=== PATIENT | female | born 1960 | race Caucasian/White ===

== ENCOUNTER → 2017-09-20 | Outpatient (CLI) | payer OTHER ==
[~2017-09-20] MED LIST: ACET650T67 PO; ASPI-183 PO; CYCL-36 PO; CYCL10TA PO; DIPH50LI PO; DOXE25CA2 PO; ENOX80P SQ; LEVO.05 PO; LEVO25TA4 PO; PANT40TA3 PO; QUEN12.5 PO; RANI150 PO; RANI150C PO; WARF5 PO
[2017-09-20 09:24] LABS: BILIRUBIN, URINE NEG (NEG); BLOOD, URINE NEG (NEG); GLUCOSE,URINE NEG (NEG); KETONE, URINE NEG (NEG); NITRITE,URINE NEG (NEG); SQUAMOUS EPITHELIAL CELL URINE <1 /hpf (0-5); URINE COLOR LIGHT-YELLOW (YELLW/STRAW); URINE LEUKOCYTE ESTERASE NEG (NEG)
[2017-09-20 09:24] LABS: HEMOGLOBIN 12.3 GM/DL (11.6-15.3); MEAN CELL VOLUME 92.9 FL (80.0-100.0); MEAN CORPUSCULAR HEMOGLOBIN 30.2 PG (27.0-34.0); MEAN CORPUSCULAR HGB CONC 32.5 % (32.0-36.0); MEAN PLATELET VOLUME 7.6 FL (7.0-11.0); PLATELET COUNT 375 TH/MM3 (150-450); RED BLOOD COUNT 4.09 MIL/MM3 (4.00-5.30); RED CELL DISTRIBUTION WIDTH 13.7 % (11.6-17.2); WHITE BLOOD COUNT 6.8 TH/MM3 (4.0-11.0)
[2017-09-20 09:34] LABS: INTERNATIONAL NORMALIZED RATIO 0.9 RATIO; PROTHROMBIN TIME - PATIENT 9.6 SEC (9.8-11.6)
[2017-09-20 09:51] LABS: ALBUMIN 3.6 GM/DL (3.4-5.0); AST (GOT) 22 U/L (15-37); BICARBONATE 29.2 MEQ/L (21.0-32.0); BLOOD UREA NITROGEN 15 MG/DL (7-18); CHLORIDE 105 MEQ/L (98-107); CREATININE 1.01 MG/DL (0.50-1.00); GLOMERULAR FILTRATION RATE 57 ML/MIN (>89); GLUCOSE,FASTING 94 MG/DL (74-99); SODIUM (NA) 142 MEQ/L (136-145)
[2017-09-20 09:52] LABS: ALT (GPT) 35 U/L (10-53)
[2017-09-20 09:55] LABS: ALKALINE PHOSPHATASE 80 U/L (45-117); TOTAL BILIRUBIN ADULT 0.2 MG/DL (0.2-1.0); TOTAL PROTEIN 7.6 GM/DL (6.4-8.2)
--- NOTE | 2017-09-20 22:51 | EKG ---
Date Performed: 09/20/2017 Time Performed: 08:37:58 PTAGE: 57 years EKG: Sinus rhythm NORMAL ECG PREVIOUS TRACING : 08/29/2015 14.30 DOCTOR: Sukhdev Couch Interpretating Date/Time 09/20/2017 22:47:26
== END ==
LOC: CPRE 08:15
PROVIDERS: ATTEND Surgery
DX: Z01.810 Encounter for preprocedural cardiovascular examination (principal); Z01.812 Encounter for preprocedural laboratory examination; M79.604 Pain in right leg
CPT/HCPCS: 36415; 80053; 81001; 85027; 85610; 85730; 93005

== ENCOUNTER 2017-09-27 05:35 | Day surgery (SDC) | payer OTHER ==
--- NOTE | 2017-09-22 09:38 | MH ---
cc: Spike MILLARD DATE OF ADMISSION 09/27/2017 ADMITTING DIAGNOSIS Osteoarthritic degeneration left hip now being admitted for left total hip arthroplasty. ADMISSION HISTORY AND PHYSICAL This pleasant 57-year-old female is being admitted today for a left total hip arthroplasty due to severe painful osteoarthritic degeneration left hip. OTHER PAST HISTORY She has a history of: 1. Thyroid problems 2. Stomach issues 3. Sciatica MEDICATIONS Currently takes: 1. Levothyroxine 2. Pantoprazole 3. Citalopram 4. Cyclobenzaprine PAST SURGERIES 1. Hysterectomy 2. Arthroscopic surgery left knee. 3. Laparoscopy 4. Lithotripsy 5. Tonsillectomy REVIEW OF SYSTEMS Noncontributory FAMILY HISTORY Noncontributory SOCIAL HISTORY She does not smoke or drink. ALLERGIES SHE IS ALLERGIC TO CEPHALOSPORINS AND BIAXIN. PHYSICAL EXAM We find 57-year female well-developed, well-nourished oriented x3 complaining of pain in her left hip. VITAL SIGNS: Blood pressure 148/86, pulse 93 and regular, respirations 18, temperature 97.9, pulse oximetry 98% on room air. HEENT: Eyes PERRL, EOMI. Ears, nose, mouth clear. NECK: Supple. LUNGS: Clear. HEART: Regular rate. ABDOMEN: Soft. Bowel sounds, nontender. EXTREMITIES: The left hip has a decreased range of motion. She is neurovascularly intact to her toes. IMPRESSION AT THIS TIME Osteoarthritic degeneration left hip. PLAN Admission for a left total hip arthroplasty today. The patient given a prescription for postoperative pain, and anticoagulation control in the office. Plans on going to a rehab center after surgical stay in the hospital. MD LESLIE Emerson/NEMOL /9:24 AM /9:28 AM
[~2017-09-27] VITALS: Ht 167.6 cm; Wt 96.2 kg
[~2017-09-27 05:35] MED LIST changes: -CYCL-36 PO; -ENOX80P SQ; -LEVO.05 PO; -QUEN12.5 PO; -RANI150 PO; -RANI150C PO; -WARF5 PO
[2017-09-27] MEDS ORDERED: SODIUM CHLORIDE 0.9% INJ 100 ML ONE (06:39)
[2017-09-27] MEDS ORDERED: VANCOMYCIN 1 GM/200 ML INJ 200 ML IV ONE (06:39)
[2017-09-27] MEDS ORDERED: CLINDAMYCIN PHOS 900 MG/6 ML VIAL ONE (06:39)
[2017-09-27 06:49] VITALS: BP 119/74; PULSE 94; RESP 20; TEMP 98.7; O2SAT 95
[2017-09-27] MEDS ORDERED: GENTAMICIN SULFATE 80 MG/2 ML VIAL ONE (06:52)
[2017-09-27] MEDS ORDERED: ACETAMINOPHEN 1000 MG/100 ML 0 ML IV ONE (07:14)
[2017-09-27] MEDS ORDERED: APREPITANT 40 MG CAP ONE (07:23)
[2017-09-27] MEDS ORDERED: POVIDONE IODINE 5% (ANTISEPSIS KIT) 4 APPLICATIONS EACH NARE PRN (07:30)
[2017-09-27] MEDS ORDERED: CLINDAMYCIN 900 MG/NS 100 ML IV SCH ×2 (07:30)
[2017-09-27] MEDS ORDERED: CHLORHEXIDINE GLUCONATE 2 % 1 PACK (2 CLOTHS) TOPICAL PRN (07:30)
[2017-09-27] MEDS ORDERED: METOPROLOL TARTRATE 25 MG TAB PO PRN (07:30)
[2017-09-27] MEDS ORDERED: LACTATED RINGER'S 1000 ML IV PRN (07:30)
[2017-09-27] MEDS ORDERED: SODIUM CHLORID 0.9% 500 ML IV PRN (07:30)
[2017-09-27] MEDS ORDERED: CHLORHEXIDINE GLUCONATE 4% SOLN 120 ML BTL TOPICAL SCH (07:30)
[2017-09-27] MEDS ORDERED: VANCOMYCIN 1000 MG/NS 250 ML (for <70 kg) IV SCH ×2 (07:30)
[2017-09-27] MEDS ORDERED: SODIUM CHLORIDE 0.9% IV SCH ×2 (08:00→11:00)
[2017-09-27] MEDS ORDERED: EXPAREL PERI-ARTICULAR INJECTION (TOTAL VOL. 120 ML) P-ARTICULR SCH ×2 (08:00)
[2017-09-27] MEDS ORDERED: TRANEXAMIC ACID IV SCH ×2 (08:00→11:00)
== END 2017-09-27 08:00 | disposition home or self-care (01) ==
LOC: HSDI 05:35 → HSDC 05:35 → HSDI 05:35 → UNDOADMIN 05:35 → EDSTATUS 08:00 → HSDC 08:00
PROVIDERS: ATTEND Surgery
DX: M16.12 Unilateral primary osteoarthritis, left hip (principal); L98.8 Other specified disorders of the skin and subcutaneous tissue; Z53.09 Procedure and treatment not carried out because of other contraindication; Z01.812 Encounter for preprocedural laboratory examination
CPT/HCPCS: 86850; 86900; 86901; C9290; G0463; J3370; J8501; 99211; J0131; J1580

== ENCOUNTER 2017-10-25 08:30 | Inpatient (IN) | payer OTHER ==
--- NOTE | 2017-10-22 09:25 | MH ---
cc: Spike Mack MD DATE OF ADMISSION: 10/25/2017 ADMITTING DIAGNOSIS: Osteoarthritic degeneration, left hip now being admitted for left total arthroplasty. HISTORY OF PRESENT ILLNESS: This pleasant 57-year-old female is being admitted today for a left total hip arthroplasty due to severe painful osteoarthritic degeneration. PAST MEDICAL HISTORY: She has history of thyroid problems and GERD. She also has anxiety disorder and back pain. MEDICATIONS: 1. Levothyroxine. 2. Pantoprazole. 3. Citalopram. 4. Cyclobenzaprine. PAST SURGICAL HISTORY: Hysterectomy, arthroscopic surgery, laparoscopy, lithotripsy and tonsillectomy. REVIEW OF SYSTEMS: Noncontributory. FAMILY HISTORY: Noncontributory. SOCIAL HISTORY: She does not smoke or drink. ALLERGIES: CEPHALOSPORINS AND BIAXIN. PHYSICAL EXAMINATION: GENERAL: I find a 57-year-old female, well developed, well nourished, alert and oriented x3, complaining of pain in her left hip. VITAL SIGNS: Blood pressure 120/78, pulse 100 and regular, respirations 18, temperature 98.2, pulse oximetry 98% on room air. HEENT: PERRLA, EOMI. Ears clear. Mouth clear. NECK: Supple. LUNGS: Clear. CARDIOVASCULAR: Regular rate. ABDOMEN: Soft, positive bowel sounds, nontender. EXTREMITIES: Exam reveals the left hip to have decreased range of motion. Neurovascularly intact to her toes. SKIN: No rash identified. IMPRESSION: At this time, is severe painful osteoarthritic degeneration of left hip. PLAN: Admission for left total hip arthroplasty today. The patient understands the procedure well and risks involved and understands using a good scrub and Bactroban preoperatively and plans on going home after surgical stay in the hospital. Spike Mack MD JRKaila/KT/ , 04:08 PM , 04:26 PM
[~2017-10-25] VITALS: Ht 167.6 cm; Wt 96.9 kg
[2017-10-25] MEDS ORDERED: CHLORHEXIDINE GLUCONATE 4% SOLN 120 ML BTL TOPICAL SCH (09:30)
[2017-10-25] MEDS ORDERED: CLINDAMYCIN 900 MG/NS 100 ML IV SCH ×2 (09:30)
[2017-10-25] MEDS ORDERED: TRANEXAMIC ACID IV SCH ×4 (09:30)
[2017-10-25] MEDS ORDERED: SODIUM CHLORIDE 0.9% IV SCH ×4 (09:30)
[2017-10-25] MEDS ORDERED: SODIUM CHLORIDE 0.9% INJ 100 ML ONE (09:38)
[2017-10-25] MEDS ORDERED: INSULIN HUMAN REGULAR 1,000 UNITS/10 ML VIAL SQ PRN (09:45)
[2017-10-25] MEDS ORDERED: METOPROLOL TARTRATE 25 MG TAB PO PRN (09:45)
[2017-10-25] MEDS ORDERED: POVIDONE IODINE 5% (ANTISEPSIS KIT) 4 APPLICATIONS EACH NARE PRN (09:45)
[2017-10-25] MEDS ORDERED: VANCOMYCIN 1 GM/200 ML PREMIX IV SCH (09:45)
[2017-10-25] MEDS ORDERED: LACTATED RINGER'S 1000 ML IV PRN (09:45)
[2017-10-25] MEDS ORDERED: SODIUM CHLORID 0.9% 500 ML IV PRN (09:45)
[2017-10-25] MEDS ORDERED: CHLORHEXIDINE GLUCONATE 2 % 1 PACK (2 CLOTHS) TOPICAL PRN (09:45)
[2017-10-25 09:50] LABS: AUTOMATED NEUTROPHIL # 3.7 TH/MM3 (1.8-7.7); BASOPHIL % 0.4 % (0.0-2.0); EOSINOPHIL # 0.2 TH/MM3 (0-0.4); HEMATOCRIT 35.7 % (35.0-46.0); HEMOGLOBIN 11.8 GM/DL (11.6-15.3); LYMPH % 37.3 % (9.0-44.0); LYMPHOCYTE # 2.7 TH/MM3 (1.0-4.8); MEAN CELL VOLUME 92.3 FL (80.0-100.0); MEAN CORPUSCULAR HEMOGLOBIN 30.5 PG (27.0-34.0); MEAN PLATELET VOLUME 7.5 FL (7.0-11.0); MONO % 7.8 % (0.0-8.0); MONOCYTE # 0.6 TH/MM3 (0-0.9); NEUT % 51.5 % (16.0-70.0); PLATELET COUNT 358 TH/MM3 (150-450); RED BLOOD COUNT 3.87 MIL/MM3 (4.00-5.30); RED CELL DISTRIBUTION WIDTH 13.6 % (11.6-17.2); WHITE BLOOD COUNT 7.1 TH/MM3 (4.0-11.0)
[2017-10-25] MEDS ORDERED: GENTAMICIN SULFATE 80 MG/2 ML VIAL ONE (09:57)
[2017-10-25] MEDS ORDERED: APREPITANT 40 MG CAP ONE (10:39)
[2017-10-25] MEDS ORDERED: ACETAMINOPHEN 325 MG TAB PO PRN (10:45)
[2017-10-25] MEDS ORDERED: DIPHENHYDRAMINE 50 MG PO PRN (10:45)
[2017-10-25] MEDS ORDERED: MAGNESIUM HYDROXIDE SUSP 30 ML CUP PO PRN (10:45)
[2017-10-25] MEDS ORDERED: NALOXONE HCL 0.4 MG/ML AMP IV PUSH PRN (10:45)
[2017-10-25] MEDS ORDERED: BISACODYL 10 MG SUPP RECTAL PRN (10:45)
[2017-10-25] MEDS ORDERED: MORPHINE SULFATE 8 MG/ML INJ IV PUSH PRN (10:45)
[2017-10-25] MEDS ORDERED: ONDANSETRON HCL 4 MG/2 ML VIAL IVP PRN (10:45)
[2017-10-25] MEDS ORDERED: MISCELLANEOUS NURSING INFORMATION XX PRN (10:45)
[2017-10-25] MEDS ORDERED: TRANEXAMIC ACID INJ 0 MG in SODIUM CHLORIDE 0.9% INJ 100 ML IV SCH (10:45)
[2017-10-25] MEDS ORDERED: DOXEPIN HCL 25 MG CAP PO PRN (10:45)
[2017-10-25] MEDS ORDERED: Post-op Orders (for Pharmacy) XX ONE (10:45)
--- NOTE | 2017-10-25 10:48 | HHI.FF ---
Face to Face Verification Diagnosis: (1) Status post total hip replacement, left Physical Therapy Gait training Hip: Total hip, Protocol: Left, Posterior hip precautions, Abduction pillow while in bed, Progress to weight bearing Canvas Knee Splint: When in bed & 2 pillows btw thighs Nursing RN: 3 days/week x 2 weeks Dressing Changes: Do not change dressing I have seen patient Gabrielle Jack on 10/25/17. My clinical findings support the need for the requested home health care services because: Limited ability to care for self High risk of falls I certify that my clinical findings support that this patient is homebound because: Unsteady gait/balance Spike Mack MD Oct 25, 2017 10:48
[2017-10-25] MEDS ORDERED: COMMODE 3-IN-11 MIS (10:51)
[2017-10-25] MEDS ORDERED: WALKER WHEELS/F1 MIS (10:51)
[2017-10-25] MEDS ORDERED: BUPIVACAINE LIPOSO PF 1.3% INJ 20 ML, BUPIVACAINE PF 0.25% INJ 20 ML in SODIUM CHLORIDE... P-ARTICULR SCH (11:30)
[2017-10-25] MEDS ORDERED: PHENYLEPH/NS 1000 MCG/10 ML SYR IV ONE (12:00)
[2017-10-25] MEDS ORDERED: DEXAMETHASONE SOD PHOS 4 MG/ML VIAL IV ONE (12:00)
[2017-10-25] MEDS ORDERED: LIDOCAINE HCL 1% PF 5 ML SYRINGE OTHER ONE (12:00)
[2017-10-25] MEDS ORDERED: ROCURONIUM INJ 50 MG/5 ML SYRINGE IV PUSH ONE (12:00)
[2017-10-25] MEDS ORDERED: GLYCOPYRROLATE 1 MG/5 ML SYRINGE IV PUSH ONE (12:00)
[2017-10-25] MEDS ORDERED: NEOSTIGMINE 5 MG/5 ML SYRINGE IV PUSH ONE (12:00)
[2017-10-25] MEDS ORDERED: ONDANSETRON HCL 4 MG/2 ML VIAL IV ONE (12:00)
[2017-10-25] MEDS ORDERED: PROPOFOL 200 MG/20 ML AMP IV ONE (12:00)
--- NOTE | 2017-10-25 14:43 | MP ---
cc: Spike Mack MD DATE OF OPERATION: PREOPERATIVE DIAGNOSIS: Osteoarthritic degeneration, left hip. POSTOPERATIVE DIAGNOSIS: Osteoarthritic degeneration, left hip. SURGERY PERFORMED: Left total hip arthroplasty using Aesculap components size 12 lateralized stem with a short neck, a size 36 head, a size 52 cup and one 32 mm screw. SURGEON: Cricket Mack MD PLATING STRIPPER: ADRIA Blevins. ANESTHESIA: General intubation. PROCEDURE: The patient was brought to the Operating Room, where after successful induction of spinal anesthesia was placed on the operating room table in the left lateral decubitus position. The left hip, thigh and leg were prepped and draped in the usual manner. A posterolateral approach was then utilized by making an incision over the proximal portion of the femur lateral aspect, carried across the greater trochanter, carried posterior in a curved incision toward the buttock. The incision was carried down through the subcutaneous tissue, through the fibers of the tensor fascia duarte and gluteus jesus to expose the greater trochanteric bursa. This was then removed by sharp and blunt dissection. The hip was then internally rotated to expose the insertions of the short external rotators of the hip and were incised at their insertion into the greater trochanter and reflected posterior to protect the sciatic nerve. These were held with a Charnley retractor to better visualize the hip joint. The capsule was identified and removed by sharp dissection. The hip was then dislocated by internal rotation and flexion of the hip. The femoral calcar was then measured using the trial components for the appropriate length cut of the neck using an oscillating saw. After the cut was made the head was removed. The acetabulum was then approached and measured, the acetabulum reamed with the acetabular reamers. Next, the femoral calcar was approached by first inserting a canal finder followed by rigid reamers, followed by a cookie-cutter to the appropriate size, in this case being a #15. The broach was left in place and a planer used to plane the calcar to a smooth finish. The broach was then removed. The trial components were then inserted into place, the hip reduced, found to track smoothly with no evidence of subluxation or dislocation. All trial components were removed. The wound was irrigated copiously with antibiotic solution and Water Pik. The actual components were then inserted and impacted into place using the aforementioned components. The hip was reduced, found to track smoothly with no evidence of subluxation or dislocation. The wound was irrigated copiously with antibiotic solution, meticulous hemostasis achieved. No drain utilized. 80 mL Exparel with a mixture of Exparel, 0.25% Marcaine plain and normal saline used in the anterior hip joint for extra pain control. The capsule approximated with interrupted #1 Vicryl, deep fascia approximated with running #2 Quill. The subcutaneous tissue approximated using interrupted and running 2-0 and 4-0 Monocryl suture in layers. Skin was approximated with Primapore dressing. A knee immobilizer and abduction pillow brace applied. The sciatic nerve identified and protected throughout the procedure. Estimated blood loss was 400 mL. Sponge and suture counts were correct. The patient tolerated the procedure well and left the Operating Room in satisfactory condition. ADRIA Blevins was present during the entire procedure to include patient positioning and the procedure. The medical necessity of the nurse practitioner, nurses assistant was indicated in this case due to the surgical complexity of the case itself. During the surgical case the medical chief technician was working the back table while my assistant professor of theater ADRIA was directly assisting me. JMD LESLIE Vasquez/ERNST , 02:16 PM , 02:42 PM
[2017-10-25] MEDS ORDERED: HYDROmorphone HCL PF 2 MG/ML VIAL ONE (14:49)
--- NOTE | 2017-10-25 14:51 | HHI.PR ---
Immediate Post Op Note Procedure Date: Oct 25, 2017 Pre Op Diagnosis: severe painful osteoarthritic degeneration left hip Post Op Diagnosis: osteoarthritic degeneration. of left hip Surgeon: Spike Mack MD Custody Assistant(s): Hermelinda COVINGTON Procedure: Left Total hip Arthroplasty Complications: none Specimen(s) removed: none Estimated blood loss: 450 Anesthesia: General Drains: None IVF Urinary Output (mLs): 0 (No munoz) Patient to: PACU Patient Condition: Good Implant/Devices: SEE IMPLANT LOG (if applicable) Date/Time of Procedure: SEE SURGICAL CARE RECORD Hermelinda Lopes Oct 25, 2017 14:51
[2017-10-25] MEDS ORDERED: MIDAZOLAM HCL 2 MG/2 ML VIAL ONE (14:59)
[2017-10-25] MEDS ORDERED: MORPHINE SULFATE 4 MG/ML INJ ONE (15:00)
[2017-10-25] MEDS: LACTATED RINGER'S 1000 ML INJ 1,000 ML IV SCH ×2 (15:06→21:05)
--- NOTE | 2017-10-25 15:37 | RADRPT ---
EXAM DATE/TIME: 10/25/2017 14:49 [facility] COMPARISON: No previous studies available for comparison. INDICATIONS : Post operative left hip. MEDICAL HISTORY : None. SURGICAL HISTORY : Tonsillectomy. ENCOUNTER: Initial ACUITY: 1 day PAIN SCORE: Non-responsive. LOCATION: Left hip. FINDINGS: A single AP view of the left hip was obtained and demonstrates the patient is status post arthroplast y. The femoral and acetabular components are intact and in normal alignment. There is adjacent soft t issue swelling and gas. There is mild osteopenia. CONCLUSION: Expected postoperative changes status post arthroplasty. Macario Wong MD on October 25, 2017 at 15:34 Board Certified Radiologist. This report was verified electronically.
[2017-10-25] MEDS ORDERED: *ONDANSETRON 4 MG VIAL PERIprocedural Use ONLY ONE (17:02)
[2017-10-25] MEDS ORDERED: *PROMETHAZINE 25 MG/ML VIAL PERIprocedural use ONLY ONE (17:45)
[2017-10-25] MEDS: CLINDAMYCIN 900 MG/NS PREMIX 50 ML IV SCH (18:00)
[2017-10-25] MEDS ORDERED: *morphine SULFATE 4 MG/ML PERIprocedure ONLY ONE (20:16)
[2017-10-25] MEDS ORDERED: TEMAZEPAM 15 MG CAP PO PRN (21:00)
[2017-10-25] MEDS: CYCLOBENZAPRINE HCL 10 MG TAB PO PRN (21:31)
[2017-10-25 22:08] VITALS: BP 145/77; PULSE 98; RESP 17; TEMP 99.3; O2SAT 100
[2017-10-25 23:15] VITALS: BP 131/67; PULSE 103; RESP 18; TEMP 99.2; O2SAT 99
[2017-10-25] MEDS: ACETAMINOPHEN/HYDROcodone 325 MG/7.5 MG TAB PO PRN ×2 (23:34→23:49)
[2017-10-26] MEDS: CLINDAMYCIN 900 MG/NS PREMIX 50 ML IV SCH ×2 (02:15→09:54)
[2017-10-26] MEDS: LEVOTHYROXINE SODIUM 25 MCG TAB PO SCH (04:09)
[2017-10-26] MEDS: ACETAMINOPHEN/HYDROcodone 325 MG/7.5 MG TAB PO PRN ×5 (04:09→21:17)
[2017-10-26 04:43] VITALS: BP 118/65; PULSE 101; RESP 17; TEMP 98; O2SAT 98
[2017-10-26 08:00] VITALS: BP 109/57; PULSE 109; RESP 18; TEMP 97.8; O2SAT 96
[2017-10-26] MEDS: PANTOPRAZOLE SOD 40 MG DELAYED RELEASE TAB PO SCH (08:41)
[2017-10-26] MEDS: APIXABAN 2.5 MG TABLET PO SCH ×2 (08:43→20:11)
--- NOTE | 2017-10-26 11:29 | PD.ORT.PN ---
Subjective Subjective Remarks Patient complaining of minimal discomfort in her hip. Objective Vitals Vital Signs Date Time Temp Pulse Resp B/P (MAP) Pulse Ox O2 Delivery O2 Flow Rate FiO2 10/26/17 08:00 97.8 109 18 109/57 (74) 96 10/26/17 07:21 Room Air 10/26/17 04:43 98.0 101 17 118/65 (82) 98 10/25/17 23:15 99.2 103 18 131/67 (88) 99 10/25/17 22:08 99.3 98 17 145/77 (99) 100 10/25/17 20:00 91 12 139/77 (97) 100 Nasal Cannula 3 10/25/17 18:00 89 14 152/72 (98) 95 Nasal Cannula 3 10/25/17 17:00 97.4 94 16 141/65 (90) 100 Nasal Cannula 3 10/25/17 16:00 83 17 145/68 (93) 97 Nasal Cannula 3 10/25/17 15:45 83 14 146/69 (94) 99 Nasal Cannula 3 10/25/17 15:30 81 12 146/71 (96) 98 Nasal Cannula 4 10/25/17 15:15 86 13 147/71 (96) 96 Nasal Cannula 4 10/25/17 15:00 90 22 134/85 (101) 99 Nasal Cannula 4 10/25/17 14:46 97.6 95 12 122/78 (93) 100 Nasal Cannula 4 I/O 10/25/17 10/25/17 10/25/17 10/26/17 10/26/17 10/26/17 07:00 15:00 23:00 07:00 15:00 23:00 Intake Total 1200 ml 1000 ml 770 ml Output Total 400 ml 1 ml 1 ml Balance 800 ml 999 ml 769 ml Intake Oral 720 ml IV Total 1200 ml 1000 ml 50 ml Output Urine Total 1 ml 1 ml Estimated Blood Loss 400 ml # Bowel Movements 0 Result Diagram: 10/26/17 0354 Imaging Last 48 hours Impressions Hip X-Ray 10/25/17 1043 Signed Impressions: Service Date/Time: Wednesday, October 25, 2017 14:49 - CONCLUSION: Expected postoperative changes status post arthroplasty. Macario Wong MD Objective Remarks Patient sitting up in chair today. She is neurovascularly intact to her toes. Negative Homans sign. Assessment & Plan Ortho Post Op Day #: 1 Problem List: Assessment and Plan Continue PT out of bed by mouth pain meds [facility]. Spike Mack MD Oct 26, 2017 11:29
[2017-10-26] MEDS ORDERED: HYDR-3580 PO (11:31)
--- NOTE | 2017-10-26 11:32 | HHI.DS ---
Discharge Summary Admission Date Oct 25, 2017 at 08:30 Discharge Date: Oct 26, 2017 Admitting Diagnosis Osteoarthritic degeneration left hip. Diagnosis: (1) Status post total hip replacement, left Diagnosis: Principal ICD Codes: Z96.642 - Presence of left artificial hip joint Brief History This is a 57 year old female patient CBC/BMP: 10/26/17 0354 Significant Findings Laboratory Tests Test 10/25/17 09:30 10/26/17 03:54 Red Blood Count 3.87 MIL/MM3 (4.00-5.30) Hemoglobin 11.0 GM/DL (11.6-15.3) Hematocrit 33.0 % (35.0-46.0) PE at Discharge Patient sitting up in chair today. She is neurovascularly intact to her toes. Negative Homans sign. Hospital Course Patient underwent a total hip arthroplasty of her left hip on day of admission. She received a course of prophylactic IV antibiotics and within 23 hours started on anticoagulation therapy. She continued to improve remaining afebrile stable vital signs and tolerating by mouth pain meds well. She was discharged to [facility] on postoperative day 1 in good condition with instructions for continuation of care and follow-up in the office. Pt Condition on Discharge: Good Discharge Disposition: Discharge to SNF Discharge Instructions Diet Instructions: As Tolerated, No Restrictions Activities You Can Perform: Full Weight Bearing, Shower Only-No Bath Activities to Avoid: Bathing, Driving Spike Mack MD Oct 26, 2017 11:32
[2017-10-26 12:00] VITALS: BP 122/55; PULSE 101; RESP 18; TEMP 98.3; O2SAT 95
[2017-10-26] MEDS: LACTATED RINGER'S 1000 ML INJ 1,000 ML IV SCH (13:30)
[2017-10-26 16:00] VITALS: BP 117/58; PULSE 105; RESP 18; TEMP 99.1; O2SAT 95
[2017-10-26] MEDS: MULTIVITAMINS/MINERALS THERAPEUTIC TAB PO SCH (20:11)
[2017-10-26] MEDS: DOCUSATE SODIUM 100 MG CAP PO SCH (20:11)
[2017-10-26 20:50] VITALS: BP 97/54; PULSE 110; RESP 18; TEMP 98.7; O2SAT 97
[2017-10-26 23:00] VITALS: BP 132/61; PULSE 117; RESP 18; TEMP 97.5; O2SAT 96
[2017-10-26] MEDS: CYCLOBENZAPRINE HCL 10 MG TAB PO PRN (23:20)
[2017-10-27] MEDS: LACTATED RINGER'S 1000 ML INJ 1,000 ML IV SCH (02:00)
[2017-10-27 03:50] VITALS: BP 132/56; PULSE 123; RESP 18; TEMP 97.9; O2SAT 98
[2017-10-27] MEDS: ACETAMINOPHEN/HYDROcodone 325 MG/7.5 MG TAB PO PRN ×3 (03:52→12:22)
[2017-10-27] MEDS: LEVOTHYROXINE SODIUM 25 MCG TAB PO SCH (05:09)
[2017-10-27 06:22] LABS: HEMATOCRIT 29.9 % (35.0-46.0); HEMOGLOBIN 9.8 GM/DL (11.6-15.3)
[2017-10-27 08:00] VITALS: BP 114/58; PULSE 103; RESP 17; TEMP 98.9; O2SAT 93
[2017-10-27] MEDS: MULTIVITAMINS/MINERALS THERAPEUTIC TAB PO SCH (08:53)
[2017-10-27] MEDS: PANTOPRAZOLE SOD 40 MG DELAYED RELEASE TAB PO SCH (08:53)
[2017-10-27] MEDS: APIXABAN 2.5 MG TABLET PO SCH (08:53)
[2017-10-27] MEDS: DOCUSATE SODIUM 100 MG CAP PO SCH (08:53)
[2017-10-27 09:53] VITALS: RESP 18
--- NOTE | 2017-10-27 11:04 | PD.ORT.PN ---
Subjective Subjective Remarks Patient complaining of minimal discomfort in her hip. Objective Vitals Vital Signs Date Time Temp Pulse Resp B/P (MAP) Pulse Ox O2 Delivery O2 Flow Rate FiO2 10/27/17 09:53 18 10/27/17 08:00 98.9 103 17 114/58 (76) 93 10/27/17 03:50 97.9 123 18 132/56 (81) 98 10/26/17 23:00 97.5 117 18 132/61 (84) 96 10/26/17 20:50 98.7 110 18 97/54 (68) 97 10/26/17 20:15 Room Air 10/26/17 16:00 99.1 105 18 117/58 (77) 95 10/26/17 12:00 98.3 101 18 122/55 (77) 95 I/O 10/26/17 10/26/17 10/26/17 10/27/17 10/27/17 10/27/17 07:00 15:00 23:00 07:00 15:00 23:00 Intake Total 770 ml 720 ml 360 ml Output Total 1 ml Balance 769 ml 720 ml 360 ml Intake Oral 720 ml 720 ml 360 ml IV Total 50 ml Output Urine Total 1 ml # Voids 2 2 # Bowel Movements 0 0 0 Result Diagram: 10/27/17 0410 Imaging Last 48 hours Impressions Hip X-Ray 10/25/17 1043 Signed Impressions: Service Date/Time: Wednesday, October 25, 2017 14:49 - CONCLUSION: Expected postoperative changes status post arthroplasty. Macario Wong MD Objective Remarks Patient sitting up in chair today. She is neurovascularly intact to her toes. Negative Homans sign. Assessment & Plan Ortho Post Op Day #: 2 Problem List: (1) Status post total hip replacement, left ICD Codes: Z96.642 - Presence of left artificial hip joint Assessment and Plan Continue PT out of bed by mouth pain meds and discharged to [facility] facility when bed available. Spike Mack MD Oct 27, 2017 11:04
== END 2017-10-27 12:24 | DRG 470 ==
LOC: HSDI 08:30 → N06A 20:49
PROVIDERS: ADMIT Surgery; ATTEND Surgery
PROC: 0SRB0JA Replacement of Left Hip Joint with Synthetic Substitute, Uncemented, Open Approach (ICD-10-PCS; principal; 2017-10-25 11:21)
DX: M16.12 Unilateral primary osteoarthritis, left hip (principal); F41.9 Anxiety disorder, unspecified; K21.9 Gastro-esophageal reflux disease without esophagitis; M54.9 Dorsalgia, unspecified; Z90.710 Acquired absence of both cervix and uterus
CPT/HCPCS: 73501; 85014; 85018; 85025; 86850; 86900; 86901; 94150; C1776; C9290; J1100; J1170; J1580; J2250; J2270; J2370; J2405; J2550; J2710; J3010; J3370; J7120; J8501; L1830

== ENCOUNTER 2018-03-07 05:42 | Observation (INO) ==
--- NOTE | 2018-03-01 13:59 | MH ---
cc: Spike Mack MD DATE OF ADMISSION: 03/07/2018 DATE OF ADMISSION: 03/07/2018 ADMITTING DIAGNOSIS: Osteoarthritic degeneration, right knee. REASON FOR ADMISSION: Now being admitted for right total knee arthroplasty. HISTORY OF PRESENT ILLNESS: This pleasant 57-year-old female is being admitted today for right total knee arthroplasty due to severe painful osteoarthritic degeneration, right knee. OTHER PAST HISTORY: Patient has a history of anxiety, hypothyroidism, chronic low back pain for which she sees Pain Management with sciatica. She also has recently been diagnosed with an elevated uric acid and C-reactive protein of over 20 for which she was put on gabapentin and will be seeing her primary care for possibility of gout and she is slightly anemic. CURRENT MEDICATIONS: 1. Gabapentin. 2. Levothyroxine. 3. Pantoprazole. 4. Citalopram. 5. Cyclobenzaprine. PAST SURGICAL HISTORY: Include partial hysterectomy, arthroscopic surgery on the left knee, laparoscopy, lithotripsy and tonsillectomy. REVIEW OF SYSTEMS: Noncontributory. FAMILY HISTORY: Noncontributory. SOCIAL HISTORY: She does not smoke or drink. ALLERGIES: ALLERGIC TO CEPHALOSPORINS. PHYSICAL EXAMINATION: GENERAL: We find a 57-year-old female, well-developed, well-nourished, oriented x 3, complaining of pain in her knees, right worse than the left. VITAL SIGNS: Blood pressure is 138/88, pulse 97, respirations 18, temperature 98.3, pulse oximetry 97% on room air. HEENT: Eyes: PERRL. EOMI. Ears, nose and mouth clear. NECK: Supple. LUNGS: Clear. HEART: Regular rate. ABDOMEN: Soft. Positive bowel sounds, nontender. EXTREMITIES: Reveal the right knee to have crepitance on range of motion, lacking 5 degrees short of full extension. She is neurovascularly intact to her toes. IMPRESSION: Severe painful osteoarthritic degeneration, right knee. PLAN: Admission for right total knee arthroplasty today as long as she does get clearance from her primary care physician. She was given a prescription for postoperative pain and anticoagulation control in the office. JMoise Mack MD JRR/SB , 01:45 PM , 01:54 PM
[2018-03-07] MEDS ORDERED: Bupivacaine/Epi PF 0.25% Inj 20 ML, Bupivacaine Liposo PF 1.3% Inj 20 ML, Sodium Chlor ... P-ARTICULR SCH ×2 (06:15)
[2018-03-07] MEDS ORDERED: Chlorhexidine 4% Topical 120 APPLIC/120 ML Bottle TOPICAL SCH (06:15)
[2018-03-07] MEDS ORDERED: Chlorhexidine Gluconate 2% 1 Pack (2 Cloths) TOPICAL SCH (06:30)
[2018-03-07] MEDS ORDERED: Metoprolol Tartrate 25 MG Tablet PO SCH (06:30)
[2018-03-07] MEDS ORDERED: Dexamethasone Inj 20 MG/5 ML Vial ONE (06:52)
[2018-03-07] MEDS ORDERED: Vancomycin Inj 1 GM/200 ML PIGGYBACK IV.SIG SCH (07:00)
[2018-03-07] MEDS ORDERED: Propofol Inj 500 MG/50 ML Vial ONE (07:00)
[2018-03-07] MEDS ORDERED: Sodium Chlor 0.9% Inj 500 ML IV.SIG SCH (07:00)
[2018-03-07] MEDS ORDERED: EPINEPHrine PF/SF Inj 1 MG/ML Ampul I-OCULAR ONE (07:01)
[2018-03-07] MEDS ORDERED: Bupivacaine/Dextrose 0.75% Inj 2 ML Ampul ONE (07:01)
[2018-03-07] MEDS ORDERED: SODIUM CHLOR 0.9% IV.SIG SCH (07:30)
[2018-03-07] MEDS ORDERED: TRANEXAMIC ACID IV.SIG SCH (07:30)
[2018-03-07] MEDS ORDERED: Bupivacaine Liposomal PF 1.3% Inj 20 ML Vial ONE (07:45)
[2018-03-07] MEDS ORDERED: Bisacodyl 10 MG Supp RECTAL PRN (08:14)
--- NOTE | 2018-03-07 08:22 | P.DCO ---
- Physical Therapy Order: Evaluate and treat, Strength and gait training - Certification I have seen patient Gabrielle Jack on 03/07/18. My clinical findings support the need for the requested home health care services because: Limited ability to care for self, High risk of falls I certify that my clinical findings support that this patient is homebound because: Post-op weakness
[2018-03-07] MEDS ORDERED: Post-op Orders (for Pharmacy) OTHER STA (11:00)
--- NOTE | 2018-03-07 11:24 | MP ---
cc: Spike Mack MD DATE OF OPERATION: PREOPERATIVE DIAGNOSIS: Osteoarthritic degeneration, right knee. POSTOPERATIVE DIAGNOSIS: Osteoarthritic degeneration, right knee. PROCEDURE PERFORMED: Right total knee arthroplasty using Consensus components, size 4 femur, 2 tibia, 10 insert and 2 patella with 3 batches of antibiotic-impregnated cement. SURGEON: Spike Mack MD WOOD HEEL FLAP INSERTER: ADRIA Blevins ANESTHESIA: Spinal. PROCEDURE: After successful induction of anesthesia, the patient is placed on the operating room table in the supine position. The knee is prepped and draped in the usual manner. A tourniquet is inflated at the upper thigh and set to 300 mmHg pressure after exsanguination of the lower extremity. A longitudinal incision is made extending from 3 inches proximal to the superior pole of the patella, across the patella in longitudinal fashion, and down past the insertion of the tibial tubercle into the proximal tibia. The incision is carried down through subcutaneous tissue along the medial aspect of the patella and retinaculum, down through the capsule to expose the knee joint. The patella and patellar tendon are freed up enough to allow the patella to be inverted and retracted off the lateral side of the knee joint. The knee joint is left exposed. Small osteophytes are removed. All soft tissue is removed to allow proper position of the femoral and tibial cutting jig guide. The first femoral jig is then inserted along the distal end of the femur after first measuring to decide whether this is a small, medium, or large component. The notch is then drilled and the tibial cutting guide inserted into the femoral cutting guide, along with the ankle brace to allow for proper measurement of the tibial cutting surface that needed to be resected. Pins are inserted into the tibial cutting jig and femoral cutting jig to hold them in place. An oscillating saw is then used to resect the surface of the tibia. The surface of the tibia is then completely removed using sharp and blunt dissection. The anterior and posterior cuts of the femur are then made as well using an oscillating saw through the cutting guide. All guides are then removed and the varus/valgus angulation cutting guide applied to the femur for proper measurement of the proper amount of valgus. The anterior cutting guide for the femur is then inserted at the anterior femoral cuts made. Next, the first block trial is inserted into the femur to allow for proper condyle drill holes to be made which are then made followed by removal of the bone between the condyles using an oscillating saw as well as the bone removed at the most posterior surface of the condyle. After this, this guide is removed and the chamfer cuts made using the chamfer cutting guide from both anterior and posterior. Next, the femoral trial is then inserted, the tibial surface reflected anterior to expose the tibial surface and a tibial stem guide is inserted after first measuring for a standard, standard plus, large, or large plus surface to be used. After the stem is impacted the trial tibial surface is applied followed by the trial meniscal components. After full range of motion is found with the appropriate length meniscal components varying the patella is prepared by resecting the posterior aspect of the patella using an oscillating saw, inserting a trial. The trial is then removed and the cruciate cutting guide applied using the bur to cut the cruciate cuts. After cruciate cuts are made all trials are removed. The wound is irrigated copiously with antibiotic solution and Water Pik and the actual components inserted into place using the aforementioned components. After the cement has hardened and the components are found to have full range of motion with no instability, the tourniquet is deflated, total tourniquet time being 57 minutes at 300 mmHg pressure. 60 mL of mixture Exparel, normal saline and 0.25% Marcaine plain was inserted around the knee joint for extra pain control. The wound again is irrigated copiously with antibiotic solution, meticulous hemostasis achieved. The deep fascia was approximated first with running #2 Quill and interrupted #1 Vicryl and 2-0 and 4-0 Monocryl. Prineo dressing was applied. No drain was utilized. The patient tolerated the procedure well and left the Operating Room in satisfactory condition. ADRIA Blevins was present during the entire procedure to include patient positioning and the procedure. The medical necessity of nurse practitioner first mate was indicated in this case due to the surgical complexity of the case itself. During the surgical case, the technology administrator was working the back table and my real estate assistant ADRIA was directly assisting me. ESTIMATED BLOOD LOSS: 100 mL. COUNTS: Sponge and suture counts were correct. COMPONENTS: The components used were the aforementioned components. J. MD LESLIE Sanchez/TL , 11:05 AM , 11:11 AM
--- NOTE | 2018-03-07 11:25 | P.BOP ---
- Preoperative Diagnosis (1) Osteoarthritis of right knee - Postoperative Diagnosis (1) Status post total right knee replacement using cement (2) Osteoarthritis of right knee Date of procedure: 03/07/18 Procedure: Right Total Knee Arthroplasty Anesthesia: spinal Surgeon: Spike Mack MD Application Support Intern: Hermelinda Lopes Estimated blood loss (mL): 100 Tourniquet time (min): 57 Urine output (mL): 0 (no munoz) Pathology: none sent Condition: stable Disposition: PACU
[2018-03-07] MEDS ORDERED: Tranexamic Acid Inj 1,000 MG in Sodium Chlor 0.9% Inj 100 ML IV.SIG ONE (11:30)
--- NOTE | 2018-03-07 11:54 | XR ---
EXAM DATE: 03/07/2018 11:52 AM EDT AGE/SEX: 57 years / Female INDICATIONS: Post op right knee. CLINICAL DATA: This is the patient's initial encounter. Patient reports that signs and symptoms have been present for 1 day and indicates a pain score of Nonresponsive. MEDICAL/SURGICAL HISTORY: None. None. COMPARISON: No prior exams available for comparison. FINDINGS: Right knee arthroplasty. Postsurgical changes. No hardware loosening or fracture. CONCLUSION: Right knee arthroplasty Electronically signed by: Kannan Pinon MD 03/07/2018 11:52 AM EDT
[2018-03-07] MEDS ORDERED: Lidocaine PF 1% Inj 5 ML Syringe INFILTRATN ONE (12:00)
[2018-03-07] MEDS ORDERED: Phenylephrine/NS 1000 MCG/10ML Syringe IV.PUSH ONE (12:00)
[2018-03-07] MEDS ORDERED: *morphine SULFATE 10 MG/ML PERIprocedure ONLY ONE ×2 (12:07→12:24)
[2018-03-07] MEDS ORDERED: Sodium Chlor 0.9% Inj 80 ML, Bupivacaine Liposo PF 1.3% Inj 20 ML, Bupivacaine PF 0.25%... P-ARTICULR SCH ×3 (12:30)
[2018-03-07] MEDS: Clindamycin 900 mg/NS Premix 900 MG/50 ML PIGGYBACK IV.SIG SCH ×2 (12:41→20:00)
[2018-03-07] MEDS: Morphine Inj 4 MG/ML Vial IV.PUSH PRN ×2 (18:08→23:43)
[2018-03-07] MEDS: Multivitamin/Minerals Therapeutic Tablet PO SCH ×2 (19:55→20:00)
[2018-03-07] MEDS: Senna/Docusate Sodium 8.6/50 MG Tablet PO SCH ×2 (19:55→20:00)
[2018-03-08] MEDS: Clindamycin 900 mg/NS Premix 900 MG/50 ML PIGGYBACK IV.SIG SCH (05:56)
[2018-03-08 06:44] LABS: Hematocrit 30.6 % (35.0-46.0); Hemoglobin 9.8 gm/dL (11.6-15.3)
[2018-03-08] MEDS: Multivitamin/Minerals Therapeutic Tablet PO SCH ×2 (09:14→21:13)
[2018-03-08] MEDS: Senna/Docusate Sodium 8.6/50 MG Tablet PO SCH ×2 (09:14→21:13)
--- NOTE | 2018-03-08 11:33 | P.PNOP ---
Subjective Interval history: Patient is comfortable without complaints. Physical Exam Vital signs: Vital Signs 03/07/18 11:45 03/07/18 12:00 03/07/18 12:15 Temperature 97.8 F Pulse Rate 81 84 84 Respiratory Rate 17 20 20 Blood Pressure 102/52 L 153/72 H 162/83 H Pulse Oximetry 100 99 98 03/07/18 12:30 03/07/18 16:00 03/07/18 19:15 Temperature 97.3 F L 97.8 F Pulse Rate 84 87 97 H Respiratory Rate 13 18 18 Blood Pressure 153/74 H 163/84 H 146/65 H Pulse Oximetry 99 100 96 03/07/18 23:46 03/08/18 00:00 03/08/18 04:00 Temperature 97.9 F 97.1 F L Pulse Rate 100 H 94 H Respiratory Rate 18 15 18 Blood Pressure 163/82 H 106/58 L Pulse Oximetry 98 97 03/08/18 08:00 Temperature 97.7 F Pulse Rate 94 H Respiratory Rate 16 Blood Pressure 111/57 L Pulse Oximetry 100 Intake & Output 03/07/18 03/08/18 03/08/18 18:59 06:59 18:59 Intake Total 3159.69 / 3159.69 530 / 530 Output Total 100 / 100 Balance 3059.69 / 3059.69 530 / 530 Weight 96.9 kg 96.9 kg Intake: IV 1359.69 / 1359.69 50 / 50 Cleocin 900 mg/NS Premix 900 mg 50 / 50 50 / 50 In 50 ml @ 100 mls/hr IV.SIG Q8H [facility] Rx#:[id number] LR 1000 mL Inj 1,000 ML @ 30 1000 / 1000 mls/hr IV.SIG .Q24H [facility] Rx#: [id number] Cyklokapron Inj 969 MG In NS 109.69 / 109.69 Inj 100 ML @ 200 mls/hr IV.SIG ONCE [facility] Rx#:[id number] Vancomycin Inj 1 gm In 200 ml @ 200 / 200 200 mls/hr IV.SIG [employer] [facility] Rx#:[id number] Oral 480 / 480 Anesthesia Amount 1800 / 1800 Output: Estimated Blood Loss 100 / 100 Other: # Voids 2 # Incontinent Voids 3 Date of Last Bowel Movement 03/06/18 # Bowel Movements 0 Results - Labs CBC & Chem 7: 03/08/18 05:12 Laboratory Results - last 24 hr 03/08/18 05:12 Hgb 9.8 L Hct 30.6 L - Imaging Impressions Knee X-Ray 03/07/18 08:15 CONCLUSION: Right knee arthroplasty Assessment and Plan - Attending Attestation Attending Attestation: Wound is clean and dry. She is neurovascularly intact to her toes. She is sitting in a chair. Plan is for the patient to continue with physical therapy and be transferred to the care home facility as soon as a bed is available. This is for continuation of care. Follow-up in the office in 1 week time for recheck. Patient does have a prescription for postoperative pain control. She will be managed on a blood thinner for 14 days.
[2018-03-08] MEDS: Morphine Inj 4 MG/ML Vial IV.PUSH PRN ×2 (15:17→21:13)
[2018-03-09 05:27] LABS: Hematocrit 29.2 % (35.0-46.0); Hemoglobin 9.4 gm/dL (11.6-15.3)
[2018-03-09] MEDS: Senna/Docusate Sodium 8.6/50 MG Tablet PO SCH ×2 (08:14→21:15)
[2018-03-09] MEDS: Multivitamin/Minerals Therapeutic Tablet PO SCH ×2 (08:15→21:16)
--- NOTE | 2018-03-09 08:21 | P.PNOP ---
Subjective Interval history: Pt comfortable today without complaints. Ready for discharge to SNF. Physical Exam Vital signs: Vital Signs 03/08/18 12:00 03/08/18 16:00 03/08/18 20:27 Temperature 97.8 F 97.7 F 98.9 F Pulse Rate 92 H 89 109 H Respiratory Rate 18 18 18 Blood Pressure 142/110 H 159/75 H 191/82 H Pulse Oximetry 99 98 93 L 03/09/18 00:00 03/09/18 01:30 Temperature 97.7 F Pulse Rate 98 H Respiratory Rate 18 16 Blood Pressure 165/77 H Pulse Oximetry 97 Intake & Output 03/08/18 03/09/18 03/09/18 18:59 06:59 18:59 Intake Total 480 / 480 Balance 480 / 480 Weight 100.7 kg Intake: Oral 480 / 480 Other: # Voids 2 Date of Last Bowel Movement 03/06/18 03/06/18 # Bowel Movements 0 Results - Labs CBC & Chem 7: 03/09/18 04:00 Laboratory Results - last 24 hr 03/09/18 04:00 Hgb 9.4 L Hct 29.2 L Assessment and Plan - Attending Attestation Attending Attestation: Wound clean and dry. NV intact. No calf tenderness. Plan to dc to SNF when bed available.
[2018-03-10] MEDS: Multivitamin/Minerals Therapeutic Tablet PO SCH (08:00)
[2018-03-10] MEDS: Senna/Docusate Sodium 8.6/50 MG Tablet PO SCH (08:01)
[2018-03-10 08:37] VITALS: RESP 16
[2018-03-10 12:33] VITALS: BP 138/80; PULSE 107; O2SAT 93
[2018-03-10 13:27] VITALS: TEMP 100.4
--- NOTE | 2018-03-11 09:54 | MD ---
cc: Spike Mack MD DATE OF DISCHARGE: 03/10/2018 ADMITTING DIAGNOSIS: Osteoarthritic degeneration, right knee. DISCHARGE DIAGNOSIS: Osteoarthritic degeneration, right knee. DISCHARGE SUMMARY: This pleasant 57-year-old female was admitted on 03/07/2018 with severe osteoarthritic degeneration, right knee. At that time, she underwent a right total knee arthroplasty, where she received a course of prophylactic IV antibiotics within 23 hours, started on anticoagulation therapy. She continued to improve, remaining afebrile. Vital signs stable, neurovascularly intact, and daily physical therapy. She tolerated food and fluid well and p.o. pain medications and was discharged on third postoperative day to home with instructions for home health care, physical therapy, and followup in the office for recheck. Patient discharged in good condition. JMoise Mack MD JRR/kb , 08:39 AM , 08:44 AM
== END 2018-03-10 15:50 ==
LOC: HSDI 05:42 → HSDC 05:42 → N06 05:42 → EDSTATUS 12:30 → N06 12:53
PROVIDERS: ADMIT Surgery; ATTEND Surgery